=== PATIENT | male | born 1935 | race Caucasian/White ===

== ENCOUNTER 2018-02-03 06:25 | Inpatient (IN) ==
[2018-02-03] MEDS ORDERED: Metoprolol Tartrate 25 MG Tablet PO ONE (07:19)
[2018-02-03] MEDS ORDERED: Chlorhexidine Gluconate 2% 1 Pack (2 Cloths) TOPICAL ONE (07:19)
--- NOTE | 2018-02-03 07:44 | XR ---
EXAM DATE: 02/03/2018 12:00 AM EDT AGE/SEX: 82 years / Male INDICATIONS: Evaluate for pneumonia, pneumothorax and communicable disease. Pre-op for right caroti d endarterectomy. CLINICAL DATA: This is the patient's initial encounter. Patient reports that signs and symptoms have been present for 1 day and indicates a pain score of 0/10. MEDICAL/SURGICAL HISTORY: Hypertension. Cholecystectomy. Tonsillectomy. Bilateral cataract dev reji. COMPARISON: [facility], XR CHEST PA AND LAT, 04/28/2016. . FINDINGS: A single AP view of the chest demonstrates the lungs to be symmetrically aerated without evidence of mass, infiltrate or effusion. The cardiomediastinal contours are unremarkable. Osseous structures a re intact. CONCLUSION: Negative examination. Electronically signed by: Kingston Kennedy MD 02/03/2018 7:43 AM EDT
[2018-02-03 07:46] LABS: Baso % (Auto) 0.8 % (0.0-2.0); Eos # (Auto) 0.4 th/mm3 (0.0-0.4); Eos % (Auto) 8.1 % (0.0-4.0); Hematocrit 40.3 % (39.0-51.0); Hemoglobin 13.6 gm/dL (13.0-17.0); Lymph # (Auto) 1.3 th/mm3 (1.0-4.8); Mean Corpuscular HGB Conc 33.7 % (32.0-36.0); Mean Corpuscular Hemoglobin 30.5 pg (27.0-34.0); Mean Corpuscular Volume 90.4 fL (80.0-100.0); Mean Platelet Volume 9.1 fL (7.0-11.0); Mono # (Auto) 0.4 th/mm3 (0.0-0.9); Mono % (Auto) 7.9 % (0.0-8.0); Neut # (Auto) 2.9 th/mm3 (1.8-7.7); Neut % (Auto) 57.2 % (16.0-70.0); Platelet Count 131 th/mm3 (150-450); Red Blood Count 4.46 mil/mm3 (4.50-5.90); Red Cell Distribution Width 14.8 % (11.6-17.2)
[2018-02-03 07:51] LABS: Activated Partial Thrombo Time 23.9 sec (24.3-30.1)
[2018-02-03] MEDS ORDERED: Sodium Chlor 0.9% Inj 500 ML IV.SIG SCH (08:00)
[2018-02-03 08:02] LABS: Calcium 8.8 mg/dL (8.5-10.1); Carbon Dioxide 26.7 meq/L (21.0-32.0); Potassium 3.9 meq/L (3.5-5.1)
[2018-02-03] MEDS ORDERED: Thrombin Topical 20,000 UNIT Spray Kit TOPICAL ONE (11:52)
[2018-02-03] MEDS ORDERED: ceFAZolin 2 GM Premix Inj 2 GM/50 ML PIGGYBACK IV.SIG ONE (11:53)
[2018-02-03] MEDS ORDERED: Protamine Sulfate Inj 50 MG/5 ML Vial ONE (11:53)
[2018-02-03] MEDS ORDERED: Heparin 10,000 UNITS/10 ML Vial (for IV use) ONE (11:53)
[2018-02-03] MEDS ORDERED: Lidocaine 1% Inj 50 ML Vial ONE (11:54)
[2018-02-03] MEDS ORDERED: Heparin/NS PF Inj 500 ML ONE (11:56)
[2018-02-03] MEDS ORDERED: Lidocaine PF 1% Inj 5 ML Syringe OTHER ONE (12:16)
[2018-02-03] MEDS ORDERED: Sodium Chlor 0.9% Inj 500 ML IV.CONT ONE (12:16)
[2018-02-03] MEDS ORDERED: Phenylephrine/NS 1000 MCG/10ML Syringe IV.PUSH ONE (12:16)
[2018-02-03] MEDS ORDERED: Glycopyrrolate Inj 1 MG/5 ML Syringe IV.PUSH ONE (12:16)
[2018-02-03] MEDS ORDERED: Neostigmine Inj 5 MG/5 ML Syringe IV.PUSH ONE (12:16)
[2018-02-03] MEDS ORDERED: Gelatin Size 100 Topical Foam ONE (12:26)
--- NOTE | 2018-02-03 14:01 | ECG ---
Date Performed: 02/03/2018 Time Performed: 07:51:45 PTAGE: 82 years EKG: SINUS BRADYCARDIA POSSIBLE LEFT VENTRICULAR HYPERTROPHY NO PREVIOUS TRACING DOCTOR: Leatha Galan M.D. Interpretating Date/Time 02/03/2018 13:58:50
[2018-02-03] MEDS ORDERED: Bisacodyl 10 MG Supp RECTAL PRN (14:43)
--- NOTE | 2018-02-03 14:58 | P.OP ---
Preoperative Diagnosis: Symptomatic right carotid artery stenosis Postoperative Diagnosis: Symptomatic right carotid artery stenosis Date of procedure: 02/03/18 Procedure: Right carotid artery endarterectomy with a pericardial patch angioplasty Anesthesia: GRECIAA Surgeon: Michael Reddy MD Estimated blood loss (mL): 50 Operation and Findings: The patient was taken to the operating room placed supine on the OR table. After general trach anesthesia the patient was prepped and draped in the standard sterile fashion. Timeout was called with all members and you are in agreement. An incision was made just anterior to the right sternocleidomastoid. Dissection was taken down through the subcutaneous tissue using electrocautery. The carotid sheath was entered. The facial vein was identified ligated and divided. The common carotid artery external carotid artery and internal carotid artery and the superior thyroid artery was dissected and encircled with Silastic loop. Hypoglossal nerve and the vagus nerve identified and protected throughout the whole procedure. We had to divide the lateral branch of the ansa cervicalis for exposure. Patient was heparinized proximal distal control was obtained in the carotid artery and an arteriotomy was created in the common carotid artery and extended into the internal carotid artery. An [place] shunt was brought into the field placed into the internal carotid artery then in the common carotid artery to maintain blood flow to the brain while performing the operation. Endarterectomy was performed fine-tuning was also performed to remove all microdebrider. The artery was then repaired using a pericardial patch that was cut to the appropriate length and secured using a 6-0 Prolene suture in a running fashion. At this point all vessels were flushed the [place] shunt was removed and the suture line was completed. Hemostasis achieved. #19 PADDY drain was placed into the wound brought through the skin using a separate stab wound and secured using nylon suture. The wound was then closed in multiple layers of Vicryl suture approximated the placenta and Monocryl suture for the skin. Steri- Strips and sterile dressing was applied. Patient tolerated the procedure well and was taken to recovery in stable condition. Patient had normal neurological function function and he was ollowing commands in all 4 extremities with no deficits identified and his tongue was midline.he was the patient was taken to the postop care unit in stable condition.
[2018-02-03] MEDS ORDERED: fentaNYL Citrate Inj 100 MCG/2 ML Ampul ONE ×2 (15:13)
[2018-02-03] MEDS: Sod Chloride 0.9% Inj 1,000 ML IV.CONT SCH (15:31)
[2018-02-03] MEDS ORDERED: Post-op Orders (for Pharmacy) OTHER STA (15:34)
--- NOTE | 2018-02-03 15:41 | P.CONCC ---
History of Present Illness Service: Critical Care Medicine Consult date: 02/03/18 Requesting Physician: Michael Reddy Reason for Consult: perioperative management of medical comorbidities Primary Care Provider: Jefferson Ram MD History of Present Illness: This is an 82yM with severe symptomatic carotid stenosis who presents for right carotid endarterectomy. He underwent right CEA with an EBL of 50mL. he was extubated and taken to CVICU. he is still arousing from anesthesia and somewhat somnolent. he wakes to voice and follows commands in all 4 extremities. no focal deficits. denies headache, sob, chest pain, vision changes, sore throat, nausea, vomiting. Review of Systems Comments: limited by arousing from anesthesia. ROS otherwise negative except noted in HPI. PMFSH - History History Provided By: Patient, Medical Record - Medical History Medical History: Medical History (Last Reviewed 02/03/18 @ 15:34 by Urbano Castaneda MD) Anemia GERD (gastroesophageal reflux disease) H/O endoscopy High cholesterol Hypertension - Surgical History Surgical History: Surgical History (Last Reviewed 02/03/18 @ 15:34 by Urbano Castaneda MD) H/O cataract removal with insertion of prosthetic lens History of cholecystectomy Hx of tonsillectomy - Family History Family History: Family History (Last Updated 02/03/18 @ 15:34 by Urbano Castaneda MD) Other Family history non-contributory - Social History I have reviewed the patient's Social History: Yes - Tobacco History Second Hand Smoke Exposure: No Tobacco Use In Past 30 Days: No Smoking Status: Never smoker - Alcohol History How Often Do You Have a Drink Containing Alcohol: 4 or more times a week - Substance Use History Substance History: No History of Abuse - Travel History Recent Travel in the [place] Within the Last 8 Weeks: No Recent Travel Out of the Country Within the Last 8 Weeks: No Medications and Allergies Active Medications: Active Medications Al Hydroxide/Mg Hydroxide (Milk Of Magnesia Liq) 30 ml PO Q12H PRN PRN Reason: Mild Constipation Bisacodyl (Dulcolax Supp) 10 mg RECTAL DAILY PRN PRN Reason: SEVERE CONSITIPATION Heparin Sodium (Porcine) (Heparin Inj) 5,000 units SQ Q8H [facility] Lactated Ringer's (Lr 1000 Ml Inj) 1,000 mls @ 30 mls/hr IV.SIG .Q24H [facility] Stop: 02/04/18 07:29 Last Admin: 02/03/18 07:10 Dose: 30 mls/hr Sodium Chloride (Ns Inj) 500 mls @ 30 mls/hr IV.SIG .Q10H [facility]ANTE Sodium Chloride (Ns Inj) 1,000 mls @ 100 mls/hr IV.CONT .Q10H [facility] Lactulose (Lactulose Liq) 30 ml PO DAILY PRN PRN Reason: SEVERE CONSITIPATION Morphine Sulfate (Morphine Inj) 2 mg IV.PUSH Q1H PRN PRN Reason: BREAKTHROUGH PAIN Oxycodone HCl (Roxicodone) 5 mg PO Q4H PRN PRN Reason: PAIN SCALE 1 TO 5 Senna/Docusate Sodium (Aundrea-Colace) 1 tab PO BID DANTE Sennosides (Senokot) 17.2 mg PO Q12H PRN PRN Reason: Moderate Constipation Sodium Chloride (Ns Flush) 2 ml IV.FLUSH PRN PRN PRN Reason: FLUSH AFTER USING IV ACCESS Allergies Allergy/AdvReac Type Severity Reaction Status Date / Time No Known Allergies Allergy Unverified 02/03/18 07:06 Home Medications Medication Instructions Recorded Confirmed Type atorvastatin 10 mg PO DAILY 02/03/18 02/03/18 History metoprolol succinate 100 mg PO DAILY 02/03/18 02/03/18 History pantoprazole 40 mg PO DAILY 02/03/18 02/03/18 History quinapril-hydrochlorothiazide 1 tab PO BID 02/03/18 02/03/18 History Physical Exam Vital signs: Vital Signs 02/03/18 07:10 Temperature 36.8 C Pulse Rate 45 L Respiratory Rate 20 Blood Pressure 120/65 Pulse Oximetry 97 Intake & Output 02/02/18 02/03/18 02/03/18 18:59 06:59 18:59 Intake Total 850 / 850 Output Total 900 / 900 Balance -50 / -50 Weight 95.6 kg 95.6 kg Intake: IV 50 / 50 Heparin/NS PF Inj 500 ML @ 0 0 / 0 mls/hr .ROUTE .STK-[facility] Rx#: [id number] Ancef 2 GM Premix Inj 2 gm In 50 / 50 50 ml @ 0 mls/hr IV.SIG .STK- [facility] Rx#:[id number] Anesthesia Amount 800 / 800 Output: Estimated Blood Loss 200 / 200 Urine Amount (Catheter) 700 / 700 Indwelling Urethral Catheter 700 / 700 Other: Weight On Admission 95.6 kg Narrative: GENERAL: Elderly male, lying in bed, arousing from anesthesia, no acute distress HEENT: Normocephalic. Atraumatic. Pupils equal, round, reactive, conjugate. Mucous membranes are moist NECK: Trachea is midline. There is no JVD. There is a right-sided neck incision with a very small less than 1 cm hematoma at the inferior edge of the incision which is soft and mobile. There is also a PADDY drain which exits beneath the right neck incision with approximately 10 mL's of sanguinous output. The neck is soft. CHEST: Unlabored. Nasal cannula oxygen. Equal chest rise. CARDIOVASCULAR: Normal rate, regular rhythm. Sinus. Pressure is 120 systolic on my evaluation. Radial arterial line is in place with its site clean dry and intact. ABDOMEN: Soft, nontender, nondistended. No guarding. MUSCULOSKELETAL: Pulses 2+. No peripheral edema. NEUROLOGICAL: RASS -1/-2. Arousing from anesthesia. Awakens and follows commands briskly x4. Muscular skeletal strength 5/5 in all 4 extremities. No focal deficits. Cranial nerves II through XII grossly intact. - Urinary Catheter Management Indwelling Urethral Catheter Cath placed during this visit: yes Reason for continuing: Hourly intake/output Insertion date: 02/03/18 Insertion time: 12:30 Assessment and Plan - Assessment and Plan Plan: Assessment: 82-year-old male postop day 0 status post right carotid endarterectomy. Admit ICU for frequent neuro monitoring and close blood pressure control. If he continues to improve on pathway will plan to discontinue arterial line and Mauricio in the morning and advance diet as tolerated. We will keep a close eye on his small area of hematoma in the inferior aspect of the right incision. s/p right CEA 02/03 - watch area closely for signs of enlarging hematoma - watch PADDY drain output - close uop monitoring - frequent neuro checks small right neck hematoma - close observation - not causing distress - likely to resolve by AM Hypertension - goal sbp < 160 - restart home lopressor - restart home ACEI GERD - restart home ppi Hyperlipidemia - restart home statin Anemia, unknown etiology - does not meet transfusion triggers at this time - minimal EBL - recheck cbc in AM advance diet as tolerated AM CBC, BMP d/c art line and mauricio in Critical care medicine will continue to follow while patient remains in the CVICU.
[2018-02-03] MEDS ORDERED: Sodium Phosphate Inj 30 MMOL in Sodium Chlor 0.9% Inj 250 ML IV.SIG PRN (15:47)
[2018-02-03] MEDS ORDERED: Magnesium Oxide 400 MG Tablet PO PRN (15:47)
[2018-02-03] MEDS ORDERED: Magnesium Sulfate Inj 2 GM in Sodium Chlor 0.9% Inj 96 ML IV.SIG PRN (15:47)
[2018-02-03] MEDS ORDERED: Potassium Chloride 25 MEQ Effervescent Tablet PO PRN (15:47)
[2018-02-03] MEDS ORDERED: Potassium Chlor 40 mEq Premix 40 MEQ/100 ML PIGGYBACK IV.SIG PRN ×2 (15:47)
[2018-02-03] MEDS ORDERED: Potassium Phosphate 500 MG Soluble Tablet PO PRN ×2 (15:47)
[2018-02-03] MEDS ORDERED: Potassium Chlor 20 mEq Premix 20 MEQ/100 ML PIGGYBACK IV.SIG PRN ×2 (15:47)
[2018-02-03] MEDS ORDERED: Potassium Phosphate Inj 30 MMOL in Sodium Chlor 0.9% Inj 250 ML IV.SIG PRN (15:47)
[2018-02-03] MEDS ORDERED: Magnesium Sulfate Inj 4 GM in Sodium Chlor 0.9% Inj 92 ML IV.SIG PRN (15:47)
[2018-02-03] MEDS ORDERED: hydrALAZINE HCl Inj 20 MG/ML Vial IV.PUSH PRN (15:48)
[2018-02-03] MEDS: Morphine Sulfate Inj 2 MG/ML Vial IV.PUSH PRN ×3 (15:56→19:11)
[2018-02-03] MEDS ORDERED: Senna/Docusate Sodium 8.6/50 MG Tablet PO SCH (21:00)
[2018-02-03] MEDS: Lisinopril 20 MG Tablet PO SCH (21:13)
[2018-02-03] MEDS: hydroCHLOROthiazide 25 MG Tablet PO SCH (23:14)
[2018-02-03] MEDS: ceFAZolin 2 GM Premix Inj 2 GM/50 ML PIGGYBACK IV.SIG SCH (23:14)
[2018-02-04] MEDS: Sod Chloride 0.9% Inj 1,000 ML IV.CONT SCH (01:48)
[2018-02-04 05:20] LABS: Hematocrit 34.6 % (39.0-51.0); Hemoglobin 11.8 gm/dL (13.0-17.0); Mean Corpuscular Hemoglobin 30.7 pg (27.0-34.0); Mean Corpuscular Volume 90.1 fL (80.0-100.0); Mean Platelet Volume 9.2 fL (7.0-11.0); Platelet Count 109 th/mm3 (150-450); Red Blood Count 3.84 mil/mm3 (4.50-5.90); Red Cell Distribution Width 14.7 % (11.6-17.2); White Blood Count 5.9 th/mm3 (4.0-11.0)
[2018-02-04 05:49] LABS: Calcium 7.9 mg/dL (8.5-10.1); Carbon Dioxide 26.5 meq/L (21.0-32.0); Potassium 3.7 meq/L (3.5-5.1)
[2018-02-04] MEDS: ceFAZolin 2 GM Premix Inj 2 GM/50 ML PIGGYBACK IV.SIG SCH (05:55)
--- NOTE | 2018-02-04 06:41 | P.PNCC ---
Subjective Subjective Remarks/Hospital Course: Hospital Course: This is an 82yM with severe symptomatic carotid stenosis who presents for right carotid endarterectomy. He underwent right CEA with an EBL of 50mL. he was extubated and taken to CVICU. he is still arousing from anesthesia and somewhat somnolent. he wakes to voice and follows commands in all 4 extremities. no focal deficits. denies headache, sob, chest pain, vision changes, sore throat, nausea, vomiting. Subjective: 02/04: doing well. denies complaints. received 1 dose of iv morphine overnight for pain, but thinks he can tolerate with PO only at this point. pain adequately controlled this AM. small area of hematoma present yesterday is no longer present. incision soft without drainage. PADDY drain without additional drainage. ROS otherwise negative. HR slightly low in the 40s, but hemodynamically stable. Objective Vital Signs / I&O: Vital Signs 02/03/18 07:10 02/03/18 15:00 02/03/18 16:22 Temperature 36.8 C 36.4 C Pulse Rate 45 L 50 L Respiratory Rate 20 16 15 Blood Pressure 120/65 146/50 H Pulse Oximetry 97 92 L 02/03/18 17:20 02/03/18 19:00 02/03/18 20:00 Temperature 37.2 C Pulse Rate 46 L Respiratory Rate 17 18 Blood Pressure 123/60 Pulse Oximetry 96 96 02/03/18 23:00 02/04/18 03:00 Temperature 37.1 C 36.6 C Pulse Rate 39 L 37 L Respiratory Rate 20 18 Blood Pressure 115/56 L 109/55 L Pulse Oximetry 98 97 Intake & Output 02/03/18 02/03/18 02/04/18 06:59 18:59 06:59 Intake Total 1855 / 1855 1535 / 1535 Output Total 1070 / 1070 470 / 470 Balance 785 / 785 1065 / 1065 Weight 95.6 kg 95.6 kg 95.5 kg Intake: IV 335 / 335 815 / 815 Heparin/NS PF Inj 500 ML @ 0 0 / 0 mls/hr .ROUTE .STK-[facility] ONE Rx#: [id number] NS Inj 1,000 ML @ 100 mls/hr IV 285 / 285 715 / 715 .CONT .Q10H [facility] Rx#:[id number] Ancef 2 GM Premix Inj 2 gm In 50 / 50 100 / 100 50 ml @ 100 mls/hr IV.SIG Q8H [facility] Rx#:[id number] Oral 720 / 720 720 / 720 Anesthesia Amount 800 / 800 Output: Stool 0 / 0 Estimated Blood Loss 200 / 200 Urine Amount (Catheter) 850 / 850 450 / 450 Indwelling Urethral Catheter 850 / 850 450 / 450 Wound Drainage 20 / 20 20 / 20 Right Neck PADDY Drain 20 20 / 20 Other: Date of Last Bowel Movement 02/02/18 02/02/18 Weight On Admission 95.6 kg Result Diagrams: 02/04/18 04:45 02/04/18 04:45 Objective Remarks: GENERAL: Elderly male, sitting in bed, no acute distress HEENT: Normocephalic. Atraumatic. Pupils equal, round, reactive, conjugate. Mucous membranes are moist NECK: Trachea is midline. There is no JVD. There is a right-sided neck incision, dressing intact, clean, dry. no evidence of hematoma. soft. PADDY drain which exits beneath the right neck incision without additional output compared with last night. CHEST: Unlabored. Nasal cannula oxygen. Equal chest rise. CARDIOVASCULAR: bradycardic rate of 47, regular rhythm. Sinus. Radial arterial line is in place with its site clean dry and intact. ABDOMEN: Soft, nontender, nondistended. No guarding. MUSCULOSKELETAL: Pulses 2+. No peripheral edema. NEUROLOGICAL: RASS 0. awake. alert. follows commands. Muscular skeletal strength 5/5 in all 4 extremities. No focal deficits. Cranial nerves II through XII grossly intact. Assessment and Plan - Assessment and Plan Plan: Assessment: 82-year-old male postop day 1 status post right carotid endarterectomy. will d/c art line and mauricio. advance diet as tolerated. ok to leave ICU. decision for hospital discharge left to vascular surgery. s/p right CEA 02/03 - watch PADDY drain output - ASA per vascular surgery small right neck hematoma- resolved - not concerning. - neck is soft. Hypertension- controlled - goal sbp < 160 - home lopressor - home ACEI - d/c art line GERD - home ppi Hyperlipidemia - home statin Anemia, unknown etiology - does not meet transfusion triggers at this time - minimal EBL - hgb stable. advance diet as tolerated AM CBC, BMP d/c art line d/c mauricio OOB aggressive pulmonary toilet transfer out of ICU. Critical care medicine will sign off when patient transfers out of ICU.
--- NOTE | 2018-02-04 09:04 | P.PNVS ---
Subjective Post Op Day #: 1 Procedure: Carotid artery endarterectomy Objective Vital Signs / I&O: Vital Signs 02/03/18 15:00 02/03/18 16:22 02/03/18 17:20 Temperature 97.6 F Pulse Rate 50 L Respiratory Rate 16 15 17 Blood Pressure 146/50 H Pulse Oximetry 92 L 02/03/18 19:00 02/03/18 20:00 02/03/18 23:00 Temperature 98.9 F 98.7 F Pulse Rate 46 L 39 L Respiratory Rate 18 20 Blood Pressure 123/60 115/56 L Pulse Oximetry 96 96 98 02/04/18 03:00 Temperature 97.9 F Pulse Rate 37 L Respiratory Rate 18 Blood Pressure 109/55 L Pulse Oximetry 97 Intake & Output 02/03/18 02/04/18 02/04/18 18:59 06:59 18:59 Intake Total 1855 / 1855 1535 / 1535 Output Total 1070 / 1070 470 / 470 Balance 785 / 785 1065 / 1065 Weight 95.6 kg 95.5 kg Intake: IV 335 / 335 815 / 815 Heparin/NS PF Inj 500 ML @ 0 0 / 0 mls/hr .ROUTE .[facility] Rx#: [id number] NS Inj 1,000 ML @ 100 mls/hr IV 285 / 285 715 / 715 .CONT .Q10H [facility] Rx#:[id number] Ancef 2 GM Premix Inj 2 gm In 50 / 50 100 / 100 50 ml @ 100 mls/hr IV.SIG Q8H [facility] Rx#:[id number] Oral 720 / 720 720 / 720 Anesthesia Amount 800 / 800 Output: Stool 0 / 0 Estimated Blood Loss 200 / 200 Urine Amount (Catheter) 850 / 850 450 / 450 Indwelling Urethral Catheter 850 / 850 450 / 450 Wound Drainage 20 / 20 20 / 20 Right Neck PADDY Drain 20 / 20 20 / 20 Other: Date of Last Bowel Movement 02/02/18 02/02/18 Weight On Admission 95.6 kg Exam: Normocephalic atraumatic Wound clean dry intact, no hematoma, no neurological deficits Tongue is midline Laboratory Results - last 24 hr 02/04/18 02/04/18 04:45 04:45 WBC 5.9 RBC 3.84 L Hgb 11.8 L Hct 34.6 L MCV 90.1 MCH 30.7 MCHC 34.0 RDW 14.7 Plt Count 109 L MPV 9.2 Sodium 139 Potassium 3.7 Chloride 105 Carbon Dioxide 26.5 Anion Gap 8 BUN 14 Creatinine 0.93 Estimated GFR 78 L Random Glucose 99 Calcium 7.9 L D Assessment and Plan - Plan Status post carotid artery endarterectomy Doing well remove A-line remove PADDY drain discharge home follow-up in 1 month with a duplex ultrasound.
[2018-02-04] MEDS: hydroCHLOROthiazide 25 MG Tablet PO SCH (09:16)
[2018-02-04] MEDS: Lisinopril 20 MG Tablet PO SCH (09:16)
[2018-02-04 09:51] VITALS: RESP 14
[2018-02-04 11:01] VITALS: O2SAT 99
[2018-02-04 12:29] VITALS: BP 112/56; PULSE 44; TEMP 98.7
[2018-02-04] MEDS ORDERED: Heparin - SQ 10,000 UNITS/ML Vial SQ SCH (14:00)
== END 2018-02-04 15:30 | disposition home or self-care (01) ==
LOC: HSDI 06:25 → HCVI 15:44
PROVIDERS: ADMIT Surgery; ATTEND Surgery